=== PATIENT | male | born 2000 | race Caucasian/White ===

== ENCOUNTER 2019-10-31 14:52 | Emergency (ER) | payer OTHER ==
[~2019-10-31] VITALS: Ht 175.3 cm; Wt 96.2 kg
[2019-10-31 15:02] VITALS: Ht 175.3 cm; Wt 96.2 kg
[2019-10-31 17:12] VITALS: BP 149/86
== END 2019-10-31 17:12 | disposition home or self-care (01) ==
LOC: ED 14:52
DX: R51 Headache (principal); R09.89 Other specified symptoms and signs involving the circulatory and respiratory systems; R09.81 Nasal congestion

== ENCOUNTER 2019-11-13 15:34 | Emergency (ER) | payer OTHER ==
[~2019-11-13] VITALS: Ht 175.3 cm; Wt 97.5 kg
[2019-11-13 15:42] VITALS: Ht 175.3 cm; Wt 97.5 kg
[2019-11-13 17:32] VITALS: BP 114/55
== END 2019-11-13 16:35 | disposition home or self-care (01) ==
LOC: ED 15:34
DX: J30.2 Other seasonal allergic rhinitis (principal)